=== PATIENT | female | born 1965 | race Two or more races ===

== ENCOUNTER 2016-10-19 15:39 | Inpatient (IN) | payer OTHER ==
[~2016-10-19] VITALS: Ht 154.9 cm; Wt 58.1 kg
[2016-10-19] MEDS ORDERED: ONDANSETRON 4 MG INJ IV STA ×2 (16:35→18:25)
[2016-10-19] MEDS ORDERED: SOD CHLORIDE 0.9% 1,000 ML IV STA (16:35)
[2016-10-19] MEDS ORDERED: HYDROmorphONE 1 MG/ML SYG IV STA ×2 (16:35→18:25)
[2016-10-19 17:05] LABS: BASOPHILS % 0.2 % (0.0-2.0); EOSINOPHILS # 0.1 10^3/ul (0.0-0.5); EOSINOPHILS % 0.3 % (0.0-7.0); LYMPHOCYTES # 1.5 10^3/ul (0.8-2.9); LYMPHOCYTES % 10.6 % (15.0-51.0); MEAN CORPUSCULAR HEMOGLOBIN 29.4 pg (29.0-33.0); MEAN CORPUSCULAR HGB CONC 32.4 g/dl (32.0-37.0); MEAN CORPUSCULAR VOLUME 90.7 fl (82.0-101.0); MEAN PLATELET VOLUME 10.4 fl (7.4-10.4); MONOCYTE # 0.6 10^3/ul (0.3-0.9); MONOCYTES % 4.3 % (0.0-11.0); NEUTROPHIL # 12.2 10^3/ul (1.6-7.5); NEUTROPHILS % 84.1 % (39.0-77.0); PLATELET COUNT 346 10^3/UL (140-415); RED BLOOD COUNT 4.08 10^6/ul (4.20-5.40); RED CELL DISTRIBUTION WIDTH 13.3 % (11.5-14.5); WHITE BLOOD COUNT 14.5 10^3/ul (4.8-10.8)
[2016-10-19 17:34] LABS: ALBUMIN 4.3 g/dl (3.3-4.9); ALBUMIN/GLOBULIN RATIO 1.43; BILIRUBIN,INDIRECT 0.6 mg/dl (0-1.1); BILIRUBIN,TOTAL 0.6 mg/dl (0.2-1.3); CALCIUM 9.3 mg/dl (8.4-10.2); CREATININE 0.9 mg/dl (0.44-1.00); POTASSIUM 3.2 mmol/L (3.5-5.1); TOTAL PROTEIN 7.3 g/dl (6.1-8.1)
[2016-10-19] MEDS ORDERED: IOHEXOL 300MG/ML 150 ML BTL ONE (17:53)
[2016-10-19] MEDS ORDERED: SOD CHLORIDE 0.9% 100 ML ONE (17:53)
--- NOTE | 2016-10-19 18:31 | ERD ---
ER Documentation Chief Complaint Date/Time DATE: 10/19/16 TIME: 18:30 Chief Complaint BIB RA FOR EVAL OF AP HPI This is a 51-year-old female sent by her doctor for evaluation. The patient is complaining of pain in the epigastric region onset yesterday and worse today. The pain is burning. The pain does not radiate. Patient has nausea no vomiting no diarrhea. No chest pain or shortness of breath no headache. The patient states these symptoms are new.. The patient has had her gallbladder removed ROS All systems reviewed and are negative except as per history of present illness. Allergies Allergies: Coded Allergies: No Known Allergy (Unverified , 10/19/16) PMhx/Soc Medical and Surgical Hx: pt denies Medical Hx, pt denies Surgical Hx History of Surgery: No Anesthesia Reaction: No Hx Neurological Disorder: No Hx Respiratory Disorders: No Hx Cardiac Disorders: No Hx Psychiatric Problems: No Hx Miscellaneous Medical Probl: Yes (WORMS IN STOMACH) Hx Alcohol Use: Yes Hx Substance Use: Yes Hx Tobacco Use: Yes Smoking Status: Current every day smoker FmHx Family History: No coronary disease Physical Exam Vitals Vital Signs Date Time Temp Pulse Resp B/P Pulse Ox O2 Delivery O2 Flow Rate FiO2 10/19/16 18:46 84 18 134/80 99 Room Air 10/19/16 15:43 98.3 62 19 135/74 98 Physical Exam Const: Well-developed, well-nourished Head: Atraumatic, normocephalic Eyes: Normal Conjunctiva, PERRLA, EOMI, normal sclera, no nystagmus ENT: Normal External Ears, Nose and Mouth, moist mucus membranes. Neck: Full range of motion. No meningismus, no lymphadenopathy. Resp: Clear to auscultation bilaterally, no wheezing, rhonchi, rales Cardio: Regular rate and rhythm, no murmurs, S1 S2 present Abd: Soft, n tenderness to the epigastric region and the left upper and lower abdomen non distended. Normal bowel sounds, no guarding or rebound, no pulsitile abdominal masses or bruits Skin: No petechiae or rashes, no ecchymosis , no maculopapular rash Back: No midline or flank tenderness Ext: No cyanosis, or edema, FROM x 4, normal inspection, neurovascularly intact x 4 Neur: Awake and alert, STR 5/5 x 4, sensation intact x 4, no focal findings, cerebellum intact Psych: Normal Mood and Affect Result Diagram: 10/19/16 1650 10/19/16 1650 Results 24 hrs Laboratory Tests Test 10/19/16 16:50 White Blood Count 14.510^3/ul Red Blood Count 4.0810^6/ul Hemoglobin 12.0g/dl Hematocrit 37.0% Mean Corpuscular Volume 90.7fl Mean Corpuscular Hemoglobin 29.4pg Mean Corpuscular Hemoglobin Concent 32.4g/dl Red Cell Distribution Width 13.3% Platelet Count 64214^3/UL Mean Platelet Volume 10.4fl Neutrophils % 84.1% Lymphocytes % 10.6% Monocytes % 4.3% Eosinophils % 0.3% Basophils % 0.2% Nucleated Red Blood Cells % 0.0/100WBC Neutrophils # 12.210^3/ul Lymphocytes # 1.510^3/ul Monocytes # 0.610^3/ul Eosinophils # 0.110^3/ul Basophils # 0.010^3/ul Nucleated Red Blood Cells # 0.010^3/ul Sodium Level 147mmol/L Potassium Level 3.2mmol/L Chloride Level 105mmol/L Carbon Dioxide Level 27mmol/L Anion Gap 18 Blood Urea Nitrogen 11mg/dl Creatinine 0.90mg/dl Glucose Level 107mg/dl Calcium Level 9.3mg/dl Total Bilirubin 0.6mg/dl Direct Bilirubin 0.00mg/dl Indirect Bilirubin 0.6mg/dl Aspartate Amino Transf (AST/SGOT) 391IU/L Alanine Aminotransferase (ALT/SGPT) 154IU/L Alkaline Phosphatase 160IU/L Total Protein 7.3g/dl Albumin 4.3g/dl Globulin 3.00g/dl Albumin/Globulin Ratio 1.43 Lipase 119U/L Current Medications Medications (Trade) Dose Ordered Sig/Renee Route PRN Reason Start Time Stop Time Status Last Admin Dose Admin Sodium Chloride (NS) 1,000 ml @ 1,000 mls/hr Q1H STAT IV 10/19/16 16:35 10/19/16 17:34 DC 10/19/16 16:40 Hydromorphone HCl (Dilaudid) 1 mg ONCE STAT IV 10/19/16 16:35 10/19/16 16:37 DC 10/19/16 16:41 Ondansetron HCl (Zofran Inj) 4 mg ONCE STAT IV 10/19/16 16:35 10/19/16 16:37 DC 10/19/16 16:40 IV Flush 10 ml 10 ml STK-MED ONCE .ROUTE 10/19/16 17:53 10/19/16 17:54 DC Sodium Chloride (NS) 100 ml @ ud STK-MED ONCE .ROUTE 10/19/16 17:53 10/19/16 17:54 DC Iohexol (Omnipaque 300mg/ ml) 150 ml STK-MED ONCE .ROUTE 10/19/16 17:53 10/19/16 17:54 DC Hydromorphone HCl (Dilaudid) 1 mg ONCE STAT IV 10/19/16 18:25 10/19/16 18:28 DC Ondansetron HCl (Zofran Inj) 4 mg ONCE STAT IV 10/19/16 18:25 10/19/16 18:28 DC Procedures/MDM EKG: Rate/Rhythm: Normal Sinus Rhythm,NL intervals QRS, ST, QT: NORMAL ID, QRS, QT] Impression: NORMAL EKG Departure Condition: Stable BONG BLEDSOE DO Oct 19, 2016 18:31
--- NOTE | 2016-10-19 19:06 | RADRPT ---
PROCEDURE: US Abdomen (right upper quadrant). CLINICAL INDICATION: Right upper quadrant abdomen pain. TECHNIQUE: Multiple real-time longitudinal and transverse images of the right upper quadrant of th e abdomen were acquired utilizing a curved array transducer. Images were reviewed on a high-resoluti on PACS workstation. COMPARISON: None FINDINGS: The liver is normal in size and normal in echogenicity. There is no focal hepatic lesion. Color Doppler and pulsed Doppler sonography demonstrate normal a ntegrade flow in the portal vein. The gallbladder is surgically absent. The bile ducts are normal with the common bile duct measuring 5.8 mm in diameter. The visualized portions of the pancreas are unremarkable with obscuration of the tail of the pancrea s. No free fluid is present. The right kidney measures 9.1 x 4.3 x 5.1 cm. There is normal echogenicity of the right kidney. T here is no perinephric fluid collection. No hydronephrosis, mass, or calculus is seen. IMPRESSION: 1. Status post cholecystectomy. 2. Otherwise normal right upper quadrant abdomen ultrasound. RPTAT: QQ .Wilson Flowers MD, MD Date Time Electronically viewed and signed by .Wilson Flowers MD, on 10/19/2016 19:05 .R/
--- NOTE | 2016-10-19 19:18 | RADRPT ---
PROCEDURE: CT abdomen and pelvis with contrast. CLINICAL INDICATION: Abdominal pain and nausea. TECHNIQUE: IV contrast enhanced CT examination of the abdomen and pelvis, with axial, sagittal and coronal reformatted images. 100 cc Isovue 300 nonionic IV contrast were employed. Automated dose e xposure control was employed. CTDI: 6.74 mGy and DLP: 331.00 mGy-cm. COMPARISON: None. FINDINGS: CT abdomen: The lung bases are clear. The heart size is normal, without pericardial thickening or effusion. The liver is normal in size and density without focal mass or intrahepatic biliary dilatation. Mild periportal edema is nonspecific and may represent elevated hydration status The spleen is normal in size and homogeneous in density. The stomach is partially collapsed, but is grossly unremarkable. The pancreas as visualized is normal. The gallbladder surgically absent, and biliary tree is unrem arkable and there is no evidence for biliary dilatation. The adrenal glands are symmetric and laverne l. The kidneys are symmetrically unremarkable as well. No renal calculus or obstructive uropathy or mass lesion is seen. The aorta is of normal caliber. Aortic vascular calcifications are very mild. There is no retroper itoneal lymphadenopathy. The yoandy hepatis region is clear. mild nonspecific small bowel ileus in the left abdomen. The bowel is otherwise unremarkable. 16 mm calcified mesenteric cyst at the righ t flank. CT pelvis: Mild nonspecific small bowel ileus throughout the pelvis. The pelvic organs are normal. The pelvic sidewalls and inguinal regions are clear. The sigmoid colon and rectum are all unremarkable. No m ass, lymphadenopathy, or free fluid is seen. No acute inflammation is seen. The appendix is unrema rkable. The surrounding osseous structures are remarkable for mild degenerative spondylosis of the spine. N o osteolytic or osteoblastic lesion is detected. IMPRESSION: 1. Mild periportal edema is nonspecific and may represent elevated hydration status. 2. Mild nonspecific small bowel ileus. 3. Otherwise, no acute process in the abdomen or pelvis. RPTAT: UU Physician Virgie Date Time Electronically viewed and signed by Physician Virgie on 10/19/2016 19:17 RS/
[2016-10-19] MEDS ORDERED: TRAM-40 PO (20:09)
[2016-10-19] MEDS ORDERED: ASPI325T4 PO (20:10)
[2016-10-19] MEDS ORDERED: METOCLOPRAMIDE 10 MG INJ IV ONE (20:30)
[2016-10-20 02:00] VITALS: BP 121/59; RESP 19
[2016-10-20 02:30] VITALS: TEMP 98.1
[2016-10-20 03:00] VITALS: BP 118/68; PULSE 77; RESP 16
[2016-10-20] MEDS ORDERED: BISACODYL (EC) 5 MG TAB PO PRN (03:30)
[2016-10-20] MEDS ORDERED: IBUPROFEN 600 MG TAB PO PRN (03:30)
[2016-10-20] MEDS ORDERED: NACL 0.9% 3 ML SYG IV SCH (03:30)
[2016-10-20 03:58] VITALS: Ht 154.9 cm; Wt 58.1 kg
[2016-10-20] MEDS: SOD CHLORIDE 0.9% 1,000 ML IV SCH ×2 (04:19→17:43)
[2016-10-20 05:44] LABS: HAAIG REFLEX REFLEX FILED
[2016-10-20 05:52] LABS: BASOPHILS % 0.2 % (0.0-2.0); EOSINOPHILS % 0.7 % (0.0-7.0); HEMATOCRIT 35.1 % (37.0-47.0); HEMOGLOBIN 11.3 g/dl (12.0-16.0); LYMPHOCYTES # 1.7 10^3/ul (0.8-2.9); LYMPHOCYTES % 29.9 % (15.0-51.0); MEAN CORPUSCULAR HEMOGLOBIN 28.9 pg (29.0-33.0); MEAN CORPUSCULAR HGB CONC 32.2 g/dl (32.0-37.0); MEAN CORPUSCULAR VOLUME 89.8 fl (82.0-101.0); MEAN PLATELET VOLUME 9.9 fl (7.4-10.4); MONOCYTE # 0.5 10^3/ul (0.3-0.9); MONOCYTES % 8.8 % (0.0-11.0); NEUTROPHIL # 3.4 10^3/ul (1.6-7.5); NEUTROPHILS % 60.2 % (39.0-77.0); PLATELET COUNT 315 10^3/UL (140-415); RED BLOOD COUNT 3.91 10^6/ul (4.20-5.40); RED CELL DISTRIBUTION WIDTH 13.3 % (11.5-14.5); WHITE BLOOD COUNT 5.7 10^3/ul (4.8-10.8)
[2016-10-20] MEDS ORDERED: PANTOPRAZOLE 40 MG INJ IV SCH (06:00)
--- NOTE | 2016-10-20 06:25 | HP ---
Date/Time of Note Date/Time of Note DATE: 10/20/16 TIME: 06:16 Assessment/Plan VTE Prophylaxis VTE Prophylaxis Intervention: SCD's Assessment/Plan Chief Complaint/Hosp Course This is a 51 year female being admitted to the [facility] floor for: #1 abdominal pain: Biliary tree etiology versus ileus. At the current time there are no overt signs of infection the patient does have an elevated white blood cell count. His white blood cell count could be reactive we will continue to follow. Her LFTs are significant for obstructive pattern. She has had a cholecystectomy. Gallbladder and CAT scan did not show any acute gallbladder or liver pathology. There was signs of mild ileus. Will order hepatitis panel as well as MRCP to assess biliary tree. Will provide pain control with IV narcotics. We will keep the patient n.p.o. for now and provide IV fluid hydration. GI consultation. #2 Migraine: Stable, continue to monitor. #3: Leukocytosis: Likely reactive. There are no overt signs of infection at this time. No fevers. Will order a UA at this time to assess for any possible urinary tract infection.. If any fevers develop or elevated white count persists will consider infectious process workup. #3 DVT and GI prophylaxis: SCDs, Protonix Further treatment strategy will be implemented as per the clinical course. Problems: HPI/ROS Admit Date/Time Admit Date/Time Oct 20, 2016 at 03:13 Hx of Present Illness Chief complaint: Right upper quadrant pain This is a 51-year-old female sent by her doctor for evaluation. The patient is complaining of pain in the right upper quadrant region onset yesterday and worse today. She states the pain occurred after eating. The pain is burning. The pain does not radiate. She did state that she had an episode of vomiting which is mostly clear. No chest pain or shortness of breath no headache. The patient states these symptoms are new. She does have a history of cholecystectomy. Allergies: NKDA Medications: See GARY RAMIREZ Const: As per HPI Eyes : No pain discharge or redness or change in visual acuity ENT: No pain, sore throat, congestion, congestion, dysphagia or discharge Respiratory: No shortness of breath, cough, sputum, wheezing, or pleuritic pain Cardiovascular: No chest pain, palpitation, PND, or edema GI : As per HPI Genitourinary: No dysuria, hematuria, flank pain , discharge or CVA tenderness Musculoskeletal: No joint pain, back pain, neck pain, restricted range of motion in neck or joints Skin: No rash, bruising or hives Neuro: No headache, dizziness, syncope, seizure, focal weakness Endocrine: No polyuria, polydipsia, temperature intolerance Psych: No hallucination, depression, anxiety or suicidal ideation PMH/Family/Social Past Medical History Migraine Past Surgical History Past Surgical Hx: cholecystectomy Family History Significant Family History: no pertinent family hx Social History Alcohol Use: none Smoking Status: Never smoker Drug Use: none Exam/Review of Systems Vital Signs Vitals Vital Signs Date Time Temp Pulse Resp B/P Pulse Ox O2 Delivery O2 Flow Rate FiO2 10/20/16 02:30 98.1 77 16 118/68 98 Room Air Exam Exam General: Patient is a well-developed female lying in bed no acute distress HEENT: Atraumatic, normocephalic. The pupils are equal, round and reactive. Extraocular motor are intact Neck: Supple with full range of motion. No rigidity or meningismus Chest: Nontender Lungs: Clear to auscultation bilaterally no crackles rales or wheezing Heart: Normal S1-S2, Regular rhythm and rate. No murmur, S3, or S4 Abdomen: Soft, right upper quadrant tenderness to palpation, no overt organomegaly appreciated, normal bowel sounds. Extremities: Normal to inspection, no edema no cyanosis Neurologic: Normal mental status, speech normal, cranial nerves II through XII are intact, motor and sensory are intact, no focal weakness Additional Comments PROCEDURE: US Abdomen (right upper quadrant). CLINICAL INDICATION: Right upper quadrant abdomen pain. TECHNIQUE: Multiple real-time longitudinal and transverse images of the right upper quadrant of the abdomen were acquired utilizing a curved array transducer. Images were reviewed on a high-resolution PACS workstation. COMPARISON: None FINDINGS: The liver is normal in size and normal in echogenicity. There is no focal hepatic lesion. Color Doppler and pulsed Doppler sonography demonstrate normal antegrade flow in the portal vein. The gallbladder is surgically absent. The bile ducts are normal with the common bile duct measuring 5.8 mm in diameter. The visualized portions of the pancreas are unremarkable with obscuration of the tail of the pancreas. No free fluid is present. The right kidney measures 9.1 x 4.3 x 5.1 cm. There is normal echogenicity of the right kidney. There is no perinephric fluid collection. No hydronephrosis , mass, or calculus is seen. IMPRESSION: 1. Status post cholecystectomy. 2. Otherwise normal right upper quadrant abdomen ultrasound. RPTAT: QQ .Wilson Flowers MD, MD Date Time Electronically viewed and signed by .Wilson Flowers MD, MD on 10/19/2016 19:05 .R/ CC: BONG BLEDSOE DO PROCEDURE: CT abdomen and pelvis with contrast. CLINICAL INDICATION: Abdominal pain and nausea. TECHNIQUE: IV contrast enhanced CT examination of the abdomen and pelvis, with axial, sagittal and coronal reformatted images. 100 cc Isovue 300 nonionic IV contrast were employed. Automated dose exposure control was employed. CTDI: 6.74 mGy and DLP: 331.00 mGy-cm. COMPARISON: None. FINDINGS: CT abdomen: The lung bases are clear. The heart size is normal, without pericardial thickening or effusion. The liver is normal in size and density without focal mass or intrahepatic biliary dilatation. Mild periportal edema is nonspecific and may represent elevated hydration status The spleen is normal in size and homogeneous in density. The stomach is partially collapsed, but is grossly unremarkable. The pancreas as visualized is normal. The gallbladder surgically absent, and biliary tree is unremarkable and there is no evidence for biliary dilatation. The adrenal glands are symmetric and normal. The kidneys are symmetrically unremarkable as well. No renal calculus or obstructive uropathy or mass lesion is seen. The aorta is of normal caliber. Aortic vascular calcifications are very mild. There is no retroperitoneal lymphadenopathy. The yoandy hepatis region is clear. mild nonspecific small bowel ileus in the left abdomen. The bowel is otherwise unremarkable. 16 mm calcified mesenteric cyst at the right flank. CT pelvis: Mild nonspecific small bowel ileus throughout the pelvis. The pelvic organs are normal. The pelvic sidewalls and inguinal regions are clear. The sigmoid colon and rectum are all unremarkable. No mass, lymphadenopathy, or free fluid is seen. No acute inflammation is seen. The appendix is unremarkable. The surrounding osseous structures are remarkable for mild degenerative spondylosis of the spine. No osteolytic or osteoblastic lesion is detected. IMPRESSION: 1. Mild periportal edema is nonspecific and may represent elevated hydration status. 2. Mild nonspecific small bowel ileus. 3. Otherwise, no acute process in the abdomen or pelvis. RPTAT: UU Physician Virgie Date Time Electronically viewed and signed by Gracia Juan Physician on 10/19/2016 19:17 EKG: Rate/Rhythm: Normal Sinus Rhythm,NL intervals QRS, ST, QT: NORMAL SD, QRS, QT] As per ED physician documentation Labs Result Diagram: 10/20/16 0504 10/19/16 1650 Medications Medications Current Medications Sodium Chloride (NS) 1,000 ml @ 80 mls/hr [id number] IV Last administered on 10/20 04:19; Admin Dose 80 MLS/HR; Start 10/20/16 at 03:08 Ondansetron HCl (Zofran Inj) 4 mg Q6H PRN IV NAUSEA AND/OR VOMITING; Start at 03:30 Ibuprofen (Motrin) 600 mg Q6H PRN PO PAIN LEVEL 1-3; Start 10/20/16 at 03:30 Morphine Sulfate (morphine) 2 mg Q4H PRN IV SEVERE PAIN LEVEL 7-10; Start 10/20 at 03:30 Docusate Sodium (Colace) 100 mg Q12H PRN PO CONSTIPATION; Start 10/20/16 at 03: 30 Bisacodyl (Dulcolax) 5 mg DAILY PRN PO CONSTIPATION; Start 10/20/16 at 03:30 Pantoprazole (Protonix Iv) 40 mg DAILY@06 IV Last administered on 10/20/16 05: 39; Admin Dose 40 MG; Start 10/20/16 at 06:00 CHICA FONTENOT Oct 20, 2016 06:25
[2016-10-20 07:05] LABS: CHOL/HDL RATIO 4.3 RATIO
[2016-10-20 08:40] VITALS: BP 113/56; RESP 18
[2016-10-20 08:40] LABS: ALBUMIN 3.7 g/dl (3.3-4.9); ALBUMIN/GLOBULIN RATIO 1.42; ALKALINE PHOSPHATASE 205 IU/L (42-121); ANION GAP 18 (8-16); BILIRUBIN,INDIRECT 1.1 mg/dl (0-1.1); BILIRUBIN,TOTAL 1.3 mg/dl (0.2-1.3); BLOOD UREA NITROGEN 11 mg/dl (7-20); CALCIUM 9.6 mg/dl (8.4-10.2); CARBON DIOXIDE 27 mmol/L (21-31); CHLORIDE 106 mmol/L (97-110); CREATININE 0.77 mg/dl (0.44-1.00); GLUCOSE 96 mg/dl (70-220); POTASSIUM 3.9 mmol/L (3.5-5.1); SODIUM 147 mmol/L (135-144); TOTAL PROTEIN 6.3 g/dl (6.1-8.1)
[2016-10-20 09:13] LABS: ALANINE AMINOTRANSFERASE 1124 IU/L (13-69)
--- NOTE | 2016-10-20 10:27 | PN ---
Date/Time of Note Date/Time of Note DATE: 10/20/16 TIME: 10:26 Assessment/Plan Lines/Catheters IV Catheter Type (from Nrsg): Peripheral IV Subjective 24 Hr Interval Summary Free Text/Dictation Pt reports some improvement in her abd pain Exam/Review of Systems Vital Signs Vitals Vital Signs Date Time Temp Pulse Resp B/P Pulse Ox O2 Delivery O2 Flow Rate FiO2 10/20/16 08:40 98.8 75 18 113/56 98 10/20/16 03:00 Room Air Results Result Diagram: 10/20/16 0504 10/20/16 0504 Results 24 hrs Laboratory Tests Test 10/19/16 16:50 10/20/16 05:04 White Blood Count 14.5 H 5.7 # Red Blood Count 4.08 L 3.91 L Hemoglobin 12.0 11.3 L Hematocrit 37.0 35.1 L Mean Corpuscular Volume 90.7 89.8 Mean Corpuscular Hemoglobin 29.4 28.9 L Mean Corpuscular Hemoglobin Concent 32.4 32.2 Red Cell Distribution Width 13.3 13.3 Platelet Count 346 315 Mean Platelet Volume 10.4 9.9 Neutrophils % 84.1 H 60.2 Lymphocytes % 10.6 L 29.9 Monocytes % 4.3 8.8 Eosinophils % 0.3 0.7 Basophils % 0.2 0.2 Nucleated Red Blood Cells % 0.0 0.0 Neutrophils # 12.2 H 3.4 Lymphocytes # 1.5 1.7 Monocytes # 0.6 0.5 Eosinophils # 0.1 0.0 Basophils # 0.0 0.0 Nucleated Red Blood Cells # 0.0 0.0 Sodium Level 147 H 147 H Potassium Level 3.2 L 3.9 Chloride Level 105 106 Carbon Dioxide Level 27 27 Anion Gap 18 H 18 H Blood Urea Nitrogen 11 11 Creatinine 0.90 0.77 Glucose Level 107 96 Calcium Level 9.3 9.6 Total Bilirubin 0.6 1.3 Direct Bilirubin 0.00 0.20 # Indirect Bilirubin 0.6 1.1 Aspartate Amino Transf (AST/SGOT) 391 H Alanine Aminotransferase (ALT/SGPT) 154 H 1124 H Alkaline Phosphatase 160 H 205 H Total Protein 7.3 6.3 # Albumin 4.3 3.7 Globulin 3.00 2.60 Albumin/Globulin Ratio 1.43 1.42 Lipase 119 C-Reactive Protein 0.6 Triglycerides Level 69 Cholesterol Level 233 H LDL Cholesterol, Calculated 165 HDL Cholesterol 54 Cholesterol/HDL Ratio 4.3 Free Thyroxine Index 3.59 Thyroxine (T4) 9.2 Triiodothyronine (T3) Uptake 39.0 Hepatitis A Antibody Total Pending Hepatitis B Surface Antigen Pending Hepatitis B Core Total Antibody Pending Hepatitis C Antibody Pending Medications Medications Current Medications Sodium Chloride (NS) 1,000 ml @ 80 mls/hr [id number] IV Last administered on 10/20t 04:19; Admin Dose 80 MLS/HR; Start 10/20/16 at 03:08 Ondansetron HCl (Zofran Inj) 4 mg Q6H PRN IV NAUSEA AND/OR VOMITING; Start at 03:30 Ibuprofen (Motrin) 600 mg Q6H PRN PO PAIN LEVEL 1-3; Start 10/20/16 at 03:30 Morphine Sulfate (morphine) 2 mg Q4H PRN IV SEVERE PAIN LEVEL 7-10; Start 10/20 at 03:30 Docusate Sodium (Colace) 100 mg Q12H PRN PO CONSTIPATION; Start 10/20/16 at 03: 30 Bisacodyl (Dulcolax) 5 mg DAILY PRN PO CONSTIPATION; Start 10/20/16 at 03:30 RICO MOORE MD Oct 20, 2016 10:27
--- NOTE | 2016-10-20 11:31 | RADRPT ---
PROCEDURE: MRI abdomen and MRCP without contrast. CLINICAL INDICATION: Right upper quadrant abdominal pain. TECHNIQUE: Routine MRCP was obtained without the administration of intravenous contrast. COMPARISON: 10/19/2016. FINDINGS: Gallbladder is surgically absent. No intra- or extra-hepatic biliary dilatation is identified. The re is no filling defect or choledocholithiasis. There is no biliary stricture. Liver demonstrates homogeneous signal without a focal lesion. Pancreas is normal. There is no dilatation of the pancreatic duct. The adrenal glands, kidneys, an d spleen are also within normal limits. Visualized bowel loops are normal in caliber and mural thickness. No free fluid collection. No lymphadenopathy. IMPRESSION: Surgical absence of the gallbladder without biliary obstruction, filling defect, or choledocholithia sis. RPTAT: EE .Chivo Ny MD, Date Time Electronically viewed and signed by .Chivo Ny MD, on 10/20/2016 11:36 .C/
[2016-10-20 11:35] LABS: ASPARTATE AMINO TRANSFERASE 1956 IU/L (15-46)
[2016-10-20 12:20] LABS: HEPATITIS B CORE ANTIBODY NEGATIVE (NEGATIVE)
[2016-10-20 14:00] VITALS: BP 112/63; RESP 18
--- NOTE | 2016-10-20 14:58 | PN ---
Date/Time of Note Date/Time of Note DATE: 10/20/16 TIME: 14:53 Assessment/Plan VTE Prophylaxis VTE Prophylaxis Intervention: SCD's Lines/Catheters IV Catheter Type (from Nrsg): Peripheral IV Assessment/Plan Assessment/Plan 51 yo F with no known sig pmhx presented with abd pain found to have transaminitis of unclear etiology. Pt with h/o cholecystectomy and MRCP without biliary tree compromise. Consider some sort of hepatic insult. Viral hepatitis w /u in process. Unclear the exact contents of pt's B complex vitamin. PLAN #transaminitis -check INR. albumin nl so do not suspect liver failure -await viral hepatitis serologies -if negative, consider AIH work up, check EBV/CMV -cont to monitor transaminases #anion gap: etiology unclear. glucose not markedly elevated, ethanol nl advance diet per pt request Subjective 24 Hr Interval Summary Free Text/Dictation Pt reports abd pain possibly a little better Pt denies EtOH abuse. Denies any recent APAP use. States the only new medication she's been taking is complex b12 vitamins for the past 2 weeks which her mother told her to take for ?low energy? Exam/Review of Systems Vital Signs Vitals Vital Signs Date Time Temp Pulse Resp B/P Pulse Ox O2 Delivery O2 Flow Rate FiO2 10/20/16 08:40 98.8 75 18 113/56 98 10/20/16 03:00 Room Air Exam nad, laying in bed no mrg lungs clear abd soft no rashes labs reviewed sig increase in transaminitis hep A Ab +, unclear if this represents previous/new infection APAP and EtOH neg b12 high MRCP nl Results Result Diagram: 10/20/16 0504 10/20/16 0504 Results 24 hrs Laboratory Tests Test 10/19/16 16:50 10/20/16 05:04 10/20/16 13:02 White Blood Count 14.5 H 5.7 # Red Blood Count 4.08 L 3.91 L Hemoglobin 12.0 11.3 L Hematocrit 37.0 35.1 L Mean Corpuscular Volume 90.7 89.8 Mean Corpuscular Hemoglobin 29.4 28.9 L Mean Corpuscular Hemoglobin Concent 32.4 32.2 Red Cell Distribution Width 13.3 13.3 Platelet Count 346 315 Mean Platelet Volume 10.4 9.9 Neutrophils % 84.1 H 60.2 Lymphocytes % 10.6 L 29.9 Monocytes % 4.3 8.8 Eosinophils % 0.3 0.7 Basophils % 0.2 0.2 Nucleated Red Blood Cells % 0.0 0.0 Neutrophils # 12.2 H 3.4 Lymphocytes # 1.5 1.7 Monocytes # 0.6 0.5 Eosinophils # 0.1 0.0 Basophils # 0.0 0.0 Nucleated Red Blood Cells # 0.0 0.0 Sodium Level 147 H 147 H Potassium Level 3.2 L 3.9 Chloride Level 105 106 Carbon Dioxide Level 27 27 Anion Gap 18 H 18 H Blood Urea Nitrogen 11 11 Creatinine 0.90 0.77 Glucose Level 107 96 Calcium Level 9.3 9.6 Total Bilirubin 0.6 1.3 Direct Bilirubin 0.00 0.20 # Indirect Bilirubin 0.6 1.1 Aspartate Amino Transf (AST/SGOT) 391 H 1956 H Alanine Aminotransferase (ALT/SGPT) 154 H 1124 H Alkaline Phosphatase 160 H 205 H Total Protein 7.3 6.3 # Albumin 4.3 3.7 Globulin 3.00 2.60 Albumin/Globulin Ratio 1.43 1.42 Lipase 119 C-Reactive Protein 0.6 Triglycerides Level 69 Cholesterol Level 233 H LDL Cholesterol, Calculated 165 HDL Cholesterol 54 Cholesterol/HDL Ratio 4.3 Thyroid Stimulating Hormone (TSH) 0.832 Free Thyroxine Index 3.59 Thyroxine (T4) 9.2 Triiodothyronine (T3) Uptake 39.0 Hepatitis A Antibody Total POSITIVE H Hepatitis B Surface Antigen NEGATIVE Hepatitis B Surface Antibody NEGATIVE Hepatitis B Core Total Antibody NEGATIVE Hepatitis C Antibody NEGATIVE Vitamin B12 Level > 1000 H Acetaminophen Level < 10.0 L Ethyl Alcohol Level < 10.0 Medications Medications Current Medications Sodium Chloride (NS) 1,000 ml @ 80 mls/hr [id number] IV Last administered on 10/20 04:19; Admin Dose 80 MLS/HR; Start 10/20/16 at 03:08 Ondansetron HCl (Zofran Inj) 4 mg Q6H PRN IV NAUSEA AND/OR VOMITING; Start at 03:30 Ibuprofen (Motrin) 600 mg Q6H PRN PO PAIN LEVEL 1-3 Last administered on 11:46; Admin Dose 600 MG; Start 10/20/16 at 03:30 Morphine Sulfate (morphine) 2 mg Q4H PRN IV SEVERE PAIN LEVEL 7-10; Start 10/20 at 03:30 Docusate Sodium (Colace) 100 mg Q12H PRN PO CONSTIPATION; Start 10/20/16 at 03: 30 Bisacodyl (Dulcolax) 5 mg DAILY PRN PO CONSTIPATION; Start 10/20/16 at 03:30 RICO MOORE MD Oct 20, 2016 14:58
[2016-10-20 16:29] LABS: PROTIME 13.2 Sec (12.2-14.2)
[2016-10-20] MEDS: morphine 2 MG INJ IV PRN (18:25)
[2016-10-20 20:00] VITALS: BP 108/61; RESP 18
[2016-10-20] MEDS: traMADol 50 MG TAB PO PRN (21:39)
[2016-10-21 02:00] VITALS: BP 108/62; RESP 18
[2016-10-21] MEDS: SOD CHLORIDE 0.9% 1,000 ML IV SCH (05:44)
[2016-10-21] MEDS: traMADol 50 MG TAB PO PRN (05:44)
[2016-10-21 06:10] LABS: BASOPHILS % 0.2 % (0.0-2.0); EOSINOPHILS # 0.1 10^3/ul (0.0-0.5); EOSINOPHILS % 2.1 % (0.0-7.0); HEMATOCRIT 34.2 % (37.0-47.0); HEMOGLOBIN 11.1 g/dl (12.0-16.0); LYMPHOCYTES # 1.8 10^3/ul (0.8-2.9); LYMPHOCYTES % 38.4 % (15.0-51.0); MEAN CORPUSCULAR HEMOGLOBIN 29.4 pg (29.0-33.0); MEAN CORPUSCULAR HGB CONC 32.5 g/dl (32.0-37.0); MEAN CORPUSCULAR VOLUME 90.7 fl (82.0-101.0); MONOCYTE # 0.4 10^3/ul (0.3-0.9); MONOCYTES % 7.9 % (0.0-11.0); NEUTROPHIL # 2.4 10^3/ul (1.6-7.5); NEUTROPHILS % 51.2 % (39.0-77.0); PLATELET COUNT 294 10^3/UL (140-415); RED BLOOD COUNT 3.77 10^6/ul (4.20-5.40); RED CELL DISTRIBUTION WIDTH 13.6 % (11.5-14.5); WHITE BLOOD COUNT 4.7 10^3/ul (4.8-10.8)
[2016-10-21 06:29] LABS: ALBUMIN 3.6 g/dl (3.3-4.9); ALBUMIN/GLOBULIN RATIO 1.38; BILIRUBIN,INDIRECT 0.8 mg/dl (0-1.1); BILIRUBIN,TOTAL 0.8 mg/dl (0.2-1.3); CALCIUM 8.7 mg/dl (8.4-10.2); CREATININE 0.83 mg/dl (0.44-1.00); POTASSIUM 3.3 mmol/L (3.5-5.1); TOTAL PROTEIN 6.2 g/dl (6.1-8.1)
[2016-10-21 09:12] VITALS: BP 123/64; RESP 18
[2016-10-21] MEDS: morphine 2 MG INJ IV PRN ×2 (10:45→21:09)
--- NOTE | 2016-10-21 15:20 | PN ---
Date/Time of Note Date/Time of Note DATE: 10/21/16 TIME: 15:18 Assessment/Plan VTE Prophylaxis VTE Prophylaxis Intervention: SCD's Lines/Catheters IV Catheter Type (from Nrsg): Peripheral IV Assessment/Plan Assessment/Plan 51 yo F with no known sig pmhx presented with abd pain found to have transaminitis of unclear etiology. Pt with h/o cholecystectomy and MRCP without biliary tree compromise. Consider some sort of hepatic insult. Viral hepatitis w /u in process. Unclear the exact contents of pt's B complex vitamin. PLAN #epigastric pain: GI eval for possible EGD repeated abd imaging #transaminitis: improving. Hep B core IgM and AIH labs still in process -await viral hepatitis serologies -cont to monitor transaminases #anion gap: resolved advance diet per pt request Subjective 24 Hr Interval Summary Free Text/Dictation Pt reports her abd pain is mostly in the epigastric region Exam/Review of Systems Vital Signs Vitals Vital Signs Date Time Temp Pulse Resp B/P Pulse Ox O2 Delivery O2 Flow Rate FiO2 10/21/16 09:12 98.3 71 18 123/64 98 10/20/16 03:00 Room Air Intake and Output 10/20/16 10/20/16 10/21/16 15:00 23:00 07:00 Intake Total 1840 ml 1770 ml Output Total 800 ml 2 ml Balance 1040 ml 1768 ml Exam nad mild epigastric ttp no mrg lungs clear abd soft LFTs improving, hep A igM neg Results Result Diagram: 10/21/16 0530 10/21/16 0530 Results 24 hrs Laboratory Tests Test 10/20/16 15:47 10/21/16 05:30 Prothrombin Time 13.2 Prothrombin Time Ratio 1.0 INR International Normalized Ratio 1.00 White Blood Count 4.7 L Red Blood Count 3.77 L Hemoglobin 11.1 L Hematocrit 34.2 L Mean Corpuscular Volume 90.7 Mean Corpuscular Hemoglobin 29.4 Mean Corpuscular Hemoglobin Concent 32.5 Red Cell Distribution Width 13.6 Platelet Count 294 Mean Platelet Volume 10.0 Neutrophils % 51.2 Lymphocytes % 38.4 Monocytes % 7.9 Eosinophils % 2.1 Basophils % 0.2 Nucleated Red Blood Cells % 0.0 Neutrophils # 2.4 Lymphocytes # 1.8 Monocytes # 0.4 Eosinophils # 0.1 Basophils # 0.0 Nucleated Red Blood Cells # 0.0 Sodium Level 147 H Potassium Level 3.3 L Chloride Level 111 H Carbon Dioxide Level 26 Anion Gap 13 Blood Urea Nitrogen 9 Creatinine 0.83 Glucose Level 93 Calcium Level 8.7 Total Bilirubin 0.8 Direct Bilirubin 0.00 # Indirect Bilirubin 0.8 Aspartate Amino Transf (AST/SGOT) 514 H Alanine Aminotransferase (ALT/SGPT) 650 H Alkaline Phosphatase 170 H Total Protein 6.2 Albumin 3.6 Globulin 2.60 Albumin/Globulin Ratio 1.38 Medications Medications Current Medications Ondansetron HCl (Zofran Inj) 4 mg Q6H PRN IV NAUSEA AND/OR VOMITING; Start at 03:30 Ibuprofen (Motrin) 600 mg Q6H PRN PO PAIN LEVEL 1-3 Last administered on 11:46; Admin Dose 600 MG; Start 10/20/16 at 03:30 Morphine Sulfate (morphine) 2 mg Q4H PRN IV SEVERE PAIN LEVEL 7-10 Last administered on 10/21/16 10:45; Admin Dose 2 MG; Start 10/20/16 at 03:30 Docusate Sodium (Colace) 100 mg Q12H PRN PO CONSTIPATION; Start 10/20/16 at 03: 30 Bisacodyl (Dulcolax) 5 mg DAILY PRN PO CONSTIPATION; Start 10/20/16 at 03:30 Tramadol HCl (Ultram) 50 mg Q6H PRN PO pain Last administered on 10/21/16 05: 44; Admin Dose 50 MG; Start 10/20/16 at 21:30 RICO MOORE MD Oct 21, 2016 15:20
[2016-10-21 15:34] VITALS: BP 110/70; RESP 20; RESP 90
--- NOTE | 2016-10-21 16:15 | RADRPT ---
PROCEDURE: XR Abdomen. CLINICAL INDICATION: Abdomen pain. TECHNIQUE: AP supine abdomen x-ray. COMPARISON: MRI of the abdomen dated 10/20/2016. FINDINGS: The bowel gas pattern is normal. There is no evidence of obstruction. There are no abnormal calcifications overlying the urinary tracts. Surgical clips are present in the right upper quadrant from previous cholecystectomy. There is a ro und calcification in the right upper quadrant just inferior to the lower liver measuring 2.0 x 1.6 c m which is probably a retained gallstone. There are mild degenerative changes of the spine. IMPRESSION: 1. Previous cholecystectomy. 2. Probable retained gallstone in the right upper quadrant of the abdomen inferior to the liver. 3. Mild degenerative changes of the spine. 3. Otherwise unremarkable supine abdomen radiograph. RPTAT: QQ .Wilson Flowers MD, MD Date Time Electronically viewed and signed by .Wilson Flowers MD, MD on 10/21/2016 16:15 .R/
[2016-10-21 19:08] LABS: ADD UMIC YES; UR ASCORBIC ACID NEGATIVE (NEGATIVE); UR BACTERIA FEW /HPF (NONE SEEN); UR BILIRUBIN (Dip) NEGATIVE (NEGATIVE); UR BLOOD (Dip) NEGATIVE (NEGATIVE); UR CLARITY CLEAR (CLEAR); UR COLOR STRAW (YELLOW); UR GLUCOSE (Dip) NEGATIVE (NEGATIVE); UR KETONES (Dip) NEGATIVE (NEGATIVE); UR LEUKOCYTE ESTERASE (Dip) 2+ Leu/ul (NEGATIVE); UR NITRITE (Dip) NEGATIVE (NEGATIVE); UR RBC 0 /HPF (0-5); UR SPECIFIC GRAVITY (Dip) 1.004 (1.003-1.030); UR TOTAL PROTEIN (Dip) NEGATIVE (NEGATIVE); UR UROBILINOGEN (Dip) NEGATIVE (NEGATIVE)
[2016-10-21 19:53] VITALS: BP 112/60; RESP 19
[2016-10-22 03:39] VITALS: BP 96/54; RESP 18
[2016-10-22 06:39] LABS: BASOPHILS % 0.2 % (0.0-2.0); EOSINOPHILS # 0.1 10^3/ul (0.0-0.5); EOSINOPHILS % 2.2 % (0.0-7.0); HEMATOCRIT 35.1 % (37.0-47.0); HEMOGLOBIN 11.1 g/dl (12.0-16.0); LYMPHOCYTES # 2.3 10^3/ul (0.8-2.9); LYMPHOCYTES % 40.9 % (15.0-51.0); MEAN CORPUSCULAR HEMOGLOBIN 29.1 pg (29.0-33.0); MEAN CORPUSCULAR HGB CONC 31.6 g/dl (32.0-37.0); MEAN CORPUSCULAR VOLUME 91.9 fl (82.0-101.0); MEAN PLATELET VOLUME 10.2 fl (7.4-10.4); MONOCYTE # 0.5 10^3/ul (0.3-0.9); MONOCYTES % 8.8 % (0.0-11.0); NEUTROPHIL # 2.7 10^3/ul (1.6-7.5); NEUTROPHILS % 47.7 % (39.0-77.0); PLATELET COUNT 296 10^3/UL (140-415); RED BLOOD COUNT 3.82 10^6/ul (4.20-5.40); RED CELL DISTRIBUTION WIDTH 13.5 % (11.5-14.5); WHITE BLOOD COUNT 5.6 10^3/ul (4.8-10.8)
[2016-10-22 07:05] LABS: ALBUMIN 3.9 g/dl (3.3-4.9); ALBUMIN/GLOBULIN RATIO 1.44; BILIRUBIN,INDIRECT 0.3 mg/dl (0-1.1); BILIRUBIN,TOTAL 0.3 mg/dl (0.2-1.3); CALCIUM 9.2 mg/dl (8.4-10.2); CREATININE 0.86 mg/dl (0.44-1.00); TOTAL PROTEIN 6.6 g/dl (6.1-8.1)
[2016-10-22 08:47] VITALS: BP 106/63; RESP 18
[2016-10-22 12:57] LABS: ANA SCREEN NEGATIVE (NEGATIVE)
[2016-10-22] MEDS: morphine 2 MG INJ IV PRN (14:01)
[2016-10-22] MEDS: ONDANSETRON 4 MG INJ IV PRN (14:01)
[2016-10-22] MEDS: DOCUSATE SODIUM 100 MG CAP PO PRN (14:09)
[2016-10-22 15:02] VITALS: BP 114/68; RESP 20
--- NOTE | 2016-10-22 15:40 | CONS ---
Date/Time of Note Date/Time of Note DATE: 10/22/16 TIME: 15:23 Assessment/Plan Assessment/Plan Additional Assessment/Plan Assessment * Epigastric pain R/O GERD vs peptic ulcer disease vs others * Transaminitis Plan * EGD tomorrow,risks and benefit explained to patient,agreed with the planned procedure * Adequate pain control * PPI * Trend liver enzymes * Further orders will depend on clinical course Consultation Date/Type/Reason Admit Date/Time Oct 20, 2016 at 03:13 Date of Consultation: Oct 22, 2016 Type of Consultation: gastroenterology Reason for Consultation abdominal pain/transaminitis Referring Provider: RICO MOORE MD Hx of Present Illness 51 year old female referred for evaluation of transaminitis and abdominal pain.Patient has been complaining on and off abdominal pain for the past 6 months becoming worse 4 days ago which prompted consultation at the emergency room.Patient denies any hematemesis,hematochezia but with nausea and vomiting. Course in the emergency room ,CT abdomen and pelvis revealed . Mild periportal edema is nonspecific and may represent elevated hydration status. Mild nonspecific small bowel ileus. Otherwise, no acute process in the abdomen or pelvis. WBC 14.1.hemoglobin 12,hematocrit 37,AST 1156 now 229,ALT 1124 now 469, alkaline phosphatase 157,ADDIS screen (-),smooth muscle antibody (-),Hep a,B and C negative,MRCP Surgical absence of the gallbladder without biliary obstruction , filling defect, or choledocholithiasis.. Presently ,she complains of epigastric pain with nausea and vomiting.We have explained our planned procedure EGD to patient and family and agreed with the planned procedure Eyes: no complaints ENT: no complaints Respiratory: no complaints Cardiovascular: no complaints Gastrointestinal: nausea, pain, vomiting Genitourinary: no complaints Musculoskeletal: no complaints Skin: no complaints Neurologic: no complaints Endocrine: no complaints Lymphatic: no complaints Psychological: nl mood/affect, no complaints Immunologic: no complaints Past Surgical History Past Surgical Hx: cholecystectomy Social History Alcohol Use: none Smoking Status: Never smoker Drug Use: none Exam/Review of Systems Vital Signs Vitals Vital Signs Date Time Temp Pulse Resp B/P Pulse Ox O2 Delivery O2 Flow Rate FiO2 10/22/16 15:02 98.3 77 20 114/68 96 10/20/16 03:00 Room Air Intake and Output 10/21/16 10/21/1617 15:00 23:00 07:00 Intake Total 640 ml 840 ml 500 ml Output Total 1000 ml 3 ml Balance 640 ml -160 ml 497 ml Exam Constitutional: alert, oriented, well developed Psych: no complaints Head: atraumatic, normocephalic Eyes: PERRL, nl conjunctiva, nl sclera ENMT: nl external ears & nose Neck: non-tender, supple Respiratory: clear to auscultation, normal air movement Cardiovascular: nl pulses, regular rate and rhythm Gastrointestinal: bowel sounds, nl liver, spleen, non-tender, soft, tender ( epigastric), No rebound or guarding Musculoskeletal: nl extremities to inspection, nl gait and stance Extremities: normal pulses Neurological: nl mental status, nl speech, nl strength Skin: nl turgor, No rash or lesions Lymph: nl lymph nodes Results Result Diagram: 10/22/16 0544 10/22/16 0544 Results 24 hrs Laboratory Tests Test 10/21/16 16:35 10/22/16 05:44 Urine Color STRAW Urine Clarity CLEAR Urine pH 7.0 Urine Specific [place] 1.004 Urine Ketones NEGATIVE Urine Nitrite NEGATIVE Urine Bilirubin NEGATIVE Urine Urobilinogen NEGATIVE Urine Leukocyte Esterase 2+ H Urine Microscopic RBC 0 Urine Microscopic WBC 3 Urine Bacteria FEW A Urine Hemoglobin NEGATIVE Urine Glucose NEGATIVE Urine Total Protein NEGATIVE White Blood Count 5.6 Red Blood Count 3.82 L Hemoglobin 11.1 L Hematocrit 35.1 L Mean Corpuscular Volume 91.9 Mean Corpuscular Hemoglobin 29.1 Mean Corpuscular Hemoglobin Concent 31.6 L Red Cell Distribution Width 13.5 Platelet Count 296 Mean Platelet Volume 10.2 Neutrophils % 47.7 Lymphocytes % 40.9 Monocytes % 8.8 Eosinophils % 2.2 Basophils % 0.2 Nucleated Red Blood Cells % 0.0 Neutrophils # 2.7 Lymphocytes # 2.3 Monocytes # 0.5 Eosinophils # 0.1 Basophils # 0.0 Nucleated Red Blood Cells # 0.0 Sodium Level 146 H Potassium Level 4.0 Chloride Level 107 Carbon Dioxide Level 26 Anion Gap 17 H Blood Urea Nitrogen 12 Creatinine 0.86 Glucose Level 94 Calcium Level 9.2 Total Bilirubin 0.3 Direct Bilirubin 0.00 Indirect Bilirubin 0.3 Aspartate Amino Transf (AST/SGOT) 229 H Alanine Aminotransferase (ALT/SGPT) 463 H Alkaline Phosphatase 157 H Total Protein 6.6 Albumin 3.9 Globulin 2.70 Albumin/Globulin Ratio 1.44 Medications Medications Current Medications Ondansetron HCl (Zofran Inj) 4 mg Q6H PRN IV NAUSEA AND/OR VOMITING Last administered on 10/22/16 14:01; Admin Dose 4 MG; Start 10/20/16 at 03:30 Ibuprofen (Motrin) 600 mg Q6H PRN PO PAIN LEVEL 1-3 Last administered on 11:46; Admin Dose 600 MG; Start 10/20/16 at 03:30 Morphine Sulfate (morphine) 2 mg Q4H PRN IV SEVERE PAIN LEVEL 7-10 Last administered on 10/22/16 14:01; Admin Dose 2 MG; Start 10/20/16 at 03:30 Docusate Sodium (Colace) 100 mg Q12H PRN PO CONSTIPATION Last administered on 14:09; Admin Dose 100 MG; Start 10/20/16 at 03:30 Bisacodyl (Dulcolax) 5 mg DAILY PRN PO CONSTIPATION; Start 10/20/16 at 03:30 Tramadol HCl (Ultram) 50 mg Q6H PRN PO pain Last administered on 10/21/16 05: 44; Admin Dose 50 MG; Start 10/20/16 at 21:30 MOJGAN SOL MD Oct 22, 2016 15:33
[2016-10-22] MEDS ORDERED: morphine 2 MG INJ IV ONE (16:30)
--- NOTE | 2016-10-22 17:26 | PN ---
Date/Time of Note Date/Time of Note DATE: 10/22/16 TIME: 17:25 Assessment/Plan VTE Prophylaxis VTE Prophylaxis Intervention: SCD's Lines/Catheters IV Catheter Type (from Nrs): Saline Lock Assessment/Plan Assessment/Plan 51 yo F with no known sig pmhx presented with abd pain found to have transaminitis of unclear etiology. Pt with h/o cholecystectomy and MRCP without biliary tree compromise. Consider some sort of hepatic insult. Viral hepatitis w /u negative. Unclear the exact contents of pt's B complex vitamin. PLAN #epigastric pain:EGD in AM #transaminitis: improving. AIH labs negative -cont to monitor transaminases #anion gap: resolved DVT prophx Subjective 24 Hr Interval Summary Free Text/Dictation Epigastric pain unchanged Exam/Review of Systems Vital Signs Vitals Vital Signs Date Time Temp Pulse Resp B/P Pulse Ox O2 Delivery O2 Flow Rate FiO2 10/22/16 15:02 98.3 77 20 114/68 96 10/20/16 03:00 Room Air Intake and Output 10/21/16 10/21/16 10/22/16 15:00 23:00 07:00 Intake Total 640 ml 840 ml 500 ml Output Total 1000 ml 3 ml Balance 640 ml -160 ml 497 ml Exam nad laying in bed no mrg lungs clear abd soft no rashes LFTs further improving Results Result Diagram: 10/22/16 0544 10/22/16 0544 Results 24 hrs Laboratory Tests Test 10/22/16 05:44 White Blood Count 5.6 Red Blood Count 3.82 L Hemoglobin 11.1 L Hematocrit 35.1 L Mean Corpuscular Volume 91.9 Mean Corpuscular Hemoglobin 29.1 Mean Corpuscular Hemoglobin Concent 31.6 L Red Cell Distribution Width 13.5 Platelet Count 296 Mean Platelet Volume 10.2 Neutrophils % 47.7 Lymphocytes % 40.9 Monocytes % 8.8 Eosinophils % 2.2 Basophils % 0.2 Nucleated Red Blood Cells % 0.0 Neutrophils # 2.7 Lymphocytes # 2.3 Monocytes # 0.5 Eosinophils # 0.1 Basophils # 0.0 Nucleated Red Blood Cells # 0.0 Sodium Level 146 H Potassium Level 4.0 Chloride Level 107 Carbon Dioxide Level 26 Anion Gap 17 H Blood Urea Nitrogen 12 Creatinine 0.86 Glucose Level 94 Calcium Level 9.2 Total Bilirubin 0.3 Direct Bilirubin 0.00 Indirect Bilirubin 0.3 Aspartate Amino Transf (AST/SGOT) 229 H Alanine Aminotransferase (ALT/SGPT) 463 H Alkaline Phosphatase 157 H Total Protein 6.6 Albumin 3.9 Globulin 2.70 Albumin/Globulin Ratio 1.44 Medications Medications Current Medications Ondansetron HCl (Zofran Inj) 4 mg Q6H PRN IV NAUSEA AND/OR VOMITING Last administered on 10/22/16 14:01; Admin Dose 4 MG; Start 10/20/16 at 03:30 Ibuprofen (Motrin) 600 mg Q6H PRN PO PAIN LEVEL 1-3 Last administered on 11:46; Admin Dose 600 MG; Start 10/20/16 at 03:30 Morphine Sulfate (morphine) 2 mg Q4H PRN IV SEVERE PAIN LEVEL 7-10 Last administered on 10/22/16 14:01; Admin Dose 2 MG; Start 10/20/16 at 03:30 Docusate Sodium (Colace) 100 mg Q12H PRN PO CONSTIPATION Last administered on 14:09; Admin Dose 100 MG; Start 10/20/16 at 03:30 Bisacodyl (Dulcolax) 5 mg DAILY PRN PO CONSTIPATION; Start 10/20/16 at 03:30 Tramadol HCl (Ultram) 50 mg Q6H PRN PO pain Last administered on 10/21/16 05: 44; Admin Dose 50 MG; Start 10/20/16 at 21:30 RICO MOORE MD Oct 22, 2016 17:26
[2016-10-22 19:44] VITALS: BP 115/66; RESP 16
[2016-10-23 02:15] VITALS: BP 101/55; RESP 16
[2016-10-23 05:36] LABS: BASOPHILS % 0.2 % (0.0-2.0); EOSINOPHILS # 0.1 10^3/ul (0.0-0.5); EOSINOPHILS % 2.2 % (0.0-7.0); HEMATOCRIT 35.1 % (37.0-47.0); LYMPHOCYTES # 2.5 10^3/ul (0.8-2.9); LYMPHOCYTES % 46.9 % (15.0-51.0); MEAN CORPUSCULAR HEMOGLOBIN 28.5 pg (29.0-33.0); MEAN CORPUSCULAR HGB CONC 31.3 g/dl (32.0-37.0); MEAN CORPUSCULAR VOLUME 90.9 fl (82.0-101.0); MEAN PLATELET VOLUME 10.3 fl (7.4-10.4); MONOCYTE # 0.4 10^3/ul (0.3-0.9); MONOCYTES % 8.2 % (0.0-11.0); NEUTROPHIL # 2.3 10^3/ul (1.6-7.5); NEUTROPHILS % 42.3 % (39.0-77.0); PLATELET COUNT 310 10^3/UL (140-415); RED BLOOD COUNT 3.86 10^6/ul (4.20-5.40); RED CELL DISTRIBUTION WIDTH 13.6 % (11.5-14.5); WHITE BLOOD COUNT 5.4 10^3/ul (4.8-10.8)
[2016-10-23 06:48] LABS: ALBUMIN 3.9 g/dl (3.3-4.9); ALBUMIN/GLOBULIN RATIO 1.39; BILIRUBIN,INDIRECT 0.3 mg/dl (0-1.1); BILIRUBIN,TOTAL 0.3 mg/dl (0.2-1.3); CALCIUM 9.3 mg/dl (8.4-10.2); CREATININE 0.89 mg/dl (0.44-1.00); TOTAL PROTEIN 6.7 g/dl (6.1-8.1)
[2016-10-23 07:40] VITALS: BP 92/53; RESP 18
[2016-10-23] MEDS: traMADol 50 MG TAB PO PRN (08:00)
[2016-10-23] MEDS: ONDANSETRON 4 MG INJ IV PRN (08:01)
--- NOTE | 2016-10-23 13:48 | PN ---
Date/Time of Note Date/Time of Note DATE: 10/23/16 TIME: 13:47 Assessment/Plan VTE Prophylaxis VTE Prophylaxis Intervention: SCD's Lines/Catheters IV Catheter Type (from Nrs): Saline Lock Assessment/Plan Assessment/Plan Assessment/Plan 51 yo F with no known sig pmhx presented with abd pain found to have transaminitis of unclear etiology. Pt with h/o cholecystectomy and MRCP without biliary tree compromise. Consider some sort of hepatic insult. Viral hepatitis w /u negative. Unclear the exact contents of pt's B complex vitamin. PLAN #epigastric pain:EGD today #transaminitis: improving. AIH labs negative -cont to monitor transaminases #anion gap: resolved DVT prophx Subjective 24 Hr Interval Summary Free Text/Dictation Epigastric pain still present. EGD this afternoon Exam/Review of Systems Vital Signs Vitals Vital Signs Date Time Temp Pulse Resp B/P Pulse Ox O2 Delivery O2 Flow Rate FiO2 10/23/16 07:40 98.1 67 18 92/53 92 10/20/16 03:00 Room Air Intake and Output 10/22/16 10/22/16 10/23/16 15:00 23:00 07:00 Intake Total 960 ml 500 ml Output Total 1500 ml Balance -540 ml 500 ml Exam nad no mrg lungs clear mild epigastric ttp no rashes LFTs stable Results Result Diagram: 10/23/16 0438 10/23/16 0438 Results 24 hrs Laboratory Tests Test 10/23/16 04:38 White Blood Count 5.4 Red Blood Count 3.86 L Hemoglobin 11.0 L Hematocrit 35.1 L Mean Corpuscular Volume 90.9 Mean Corpuscular Hemoglobin 28.5 L Mean Corpuscular Hemoglobin Concent 31.3 L Red Cell Distribution Width 13.6 Platelet Count 310 Mean Platelet Volume 10.3 Neutrophils % 42.3 Lymphocytes % 46.9 Monocytes % 8.2 Eosinophils % 2.2 Basophils % 0.2 Nucleated Red Blood Cells % 0.0 Neutrophils # 2.3 Lymphocytes # 2.5 Monocytes # 0.4 Eosinophils # 0.1 Basophils # 0.0 Nucleated Red Blood Cells # 0.0 Sodium Level 144 Potassium Level 4.0 Chloride Level 104 Carbon Dioxide Level 28 Anion Gap 16 Blood Urea Nitrogen 12 Creatinine 0.89 Glucose Level 93 Calcium Level 9.3 Total Bilirubin 0.3 Direct Bilirubin 0.00 Indirect Bilirubin 0.3 Aspartate Amino Transf (AST/SGOT) 291 H Alanine Aminotransferase (ALT/SGPT) 518 H Alkaline Phosphatase 212 H Total Protein 6.7 Albumin 3.9 Globulin 2.80 Albumin/Globulin Ratio 1.39 Medications Medications Current Medications Ondansetron HCl (Zofran Inj) 4 mg Q6H PRN IV NAUSEA AND/OR VOMITING Last administered on 10/23/16 08:01; Admin Dose 4 MG; Start 10/20/16 at 03:30 Ibuprofen (Motrin) 600 mg Q6H PRN PO PAIN LEVEL 1-3 Last administered on 11:46; Admin Dose 600 MG; Start 10/20/16 at 03:30 Morphine Sulfate (morphine) 2 mg Q4H PRN IV SEVERE PAIN LEVEL 7-10 Last administered on 10/22/16 14:01; Admin Dose 2 MG; Start 10/20/16 at 03:30 Docusate Sodium (Colace) 100 mg Q12H PRN PO CONSTIPATION Last administered on 14:09; Admin Dose 100 MG; Start 10/20/16 at 03:30 Bisacodyl (Dulcolax) 5 mg DAILY PRN PO CONSTIPATION Last administered on 20:21; Admin Dose 5 MG; Start 10/20/16 at 03:30 Tramadol HCl (Ultram) 50 mg Q6H PRN PO pain Last administered on 10/23/16 08: 00; Admin Dose 50 MG; Start 10/20/16 at 21:30 RICO MOORE MD Oct 23, 2016 13:48
[2016-10-23 14:15] VITALS: BP 97/64; RESP 16
[2016-10-23] MEDS ORDERED: PROPOFOL 20 ML ONE (15:40)
[2016-10-23] MEDS ORDERED: LIDOCAINE 2% (SDV) 5 ML INJ ONE (15:40)
[2016-10-23 15:43] VITALS: BP 134/70; RESP 18
[2016-10-23] MEDS ORDERED: PHENYLephrine (100 MCG/ML) 5ML SYG ONE (15:58)
[2016-10-23] MEDS ORDERED: EPHEDrine SULFATE 50 MG/5 ML SYG ONE (15:58)
[2016-10-23] MEDS ORDERED: ONDANSETRON 4 MG INJ IV PRN (16:00)
[2016-10-23] MEDS ORDERED: HYDROmorphONE (0.2 MG/ML) 10ML SYG IV PRN (16:00)
--- NOTE | 2016-10-23 16:05 | OPR ---
Date/Time of Note Date/Time of Note DATE: 10/23/16 TIME: 16:04 Operative Report Preoperative Diagnosis * Abdominal pain Postoperative Diagnosis Impression: * Multiple antral gastric ulcerations * Rule out H. pylori infection. Biopsies obtained Plan: * Protonix 40 mg twice daily * Review pathology * Advance diet * If able to tolerate diet outpatient follow-up appears safe . Operation/Procedure Performed * EGD with biopsies Surgeon: MOJGAN SOL MD Anesthesia: MAC Estimated Blood Loss: none Specimens * Gastric body/antrum Grafts/Implants * None MJOGAN SOL MD Oct 23, 2016 16:05
[2016-10-23 20:37] VITALS: BP 100/52; RESP 18
[2016-10-24] MEDS: traMADol 50 MG TAB PO PRN ×2 (02:16→09:14)
[2016-10-24 03:41] VITALS: BP 95/52; RESP 18
[2016-10-24 05:19] LABS: BASOPHILS % 0.2 % (0.0-2.0); EOSINOPHILS # 0.1 10^3/ul (0.0-0.5); EOSINOPHILS % 1.6 % (0.0-7.0); HEMATOCRIT 35.4 % (37.0-47.0); HEMOGLOBIN 11.3 g/dl (12.0-16.0); LYMPHOCYTES # 2.3 10^3/ul (0.8-2.9); LYMPHOCYTES % 45.9 % (15.0-51.0); MEAN CORPUSCULAR HEMOGLOBIN 29.2 pg (29.0-33.0); MEAN CORPUSCULAR HGB CONC 31.9 g/dl (32.0-37.0); MEAN CORPUSCULAR VOLUME 91.5 fl (82.0-101.0); MEAN PLATELET VOLUME 10.3 fl (7.4-10.4); MONOCYTE # 0.4 10^3/ul (0.3-0.9); MONOCYTES % 8.2 % (0.0-11.0); NEUTROPHIL # 2.2 10^3/ul (1.6-7.5); NEUTROPHILS % 43.9 % (39.0-77.0); PLATELET COUNT 308 10^3/UL (140-415); RED BLOOD COUNT 3.87 10^6/ul (4.20-5.40); RED CELL DISTRIBUTION WIDTH 13.4 % (11.5-14.5)
[2016-10-24] MEDS: PANTOPRAZOLE (EC) 40 MG TAB PO SCH (05:23)
[2016-10-24] MEDS: DOCUSATE SODIUM 100 MG CAP PO PRN (05:23)
[2016-10-24 05:57] LABS: ALBUMIN 3.9 g/dl (3.3-4.9); ALBUMIN/GLOBULIN RATIO 1.34; BILIRUBIN,INDIRECT 0.1 mg/dl (0-1.1); BILIRUBIN,TOTAL 0.1 mg/dl (0.2-1.3); CALCIUM 9.5 mg/dl (8.4-10.2); CREATININE 0.87 mg/dl (0.44-1.00); POTASSIUM 4.2 mmol/L (3.5-5.1); TOTAL PROTEIN 6.8 g/dl (6.1-8.1)
[2016-10-24 08:20] VITALS: BP 101/55; RESP 16
[2016-10-24] MEDS ORDERED: EXCED PO (11:23)
[2016-10-24] MEDS ORDERED: PANT40TA4 PO (11:55)
--- NOTE | 2016-10-24 12:03 | PDOCDIS ---
Discharge Instructions CONDITION Patient Condition: Stable HOME CARE INSTRUCTIONS: Diet Instructions: RegularSpecial Diet: soft diet FOLLOW UP/APPOINTMENTS Follow-up Plan Follow up with your regular doctor within 7 days to get your liver bloodwork rechecked. The family caseworker will give you information for how to obtain a new regular doctor. Follow up with Dr Rader within 4 weeks Office Address [id number] [place], [place] [id number] Office RICO MOORE MD Oct 24, 2016 12:03
--- NOTE | 2016-10-24 12:06 | DS ---
Date/Time of Note Date/Time of Note DATE: 10/24/16 TIME: 12:06 Discharge Summary Admission/Discharge Info Admit Date/Time Oct 20, 2016 at 03:13 Discharge Date/Time Discharge Diagnosis gastric ulcers, transaminitis Patient Condition: Good Consults gastroenterology Procedures 7. EGD Impression: * Multiple antral gastric ulcerations * Rule out H. pylori infection. Biopsies obtained * 7. CT AP IMPRESSION: 1. Mild periportal edema is nonspecific and may represent elevated hydration status. 2. Mild nonspecific small bowel ileus. 3. Otherwise, no acute process in the abdomen or pelvis. 7. MRCP Surgical absence of the gallbladder without biliary obstruction, filling defect , or choledocholithiasis. 7. RUQ US IMPRESSION: 1. Status post cholecystectomy. 2. Otherwise normal right upper quadrant abdomen ultrasound. Hx of Present Illness Chief complaint: Right upper quadrant pain This is a 51-year-old female sent by her doctor for evaluation. The patient is complaining of pain in the right upper quadrant region onset yesterday and worse today. She states the pain occurred after eating. The pain is burning. The pain does not radiate. She did state that she had an episode of vomiting which is mostly clear. No chest pain or shortness of breath no headache. The patient states these symptoms are new. She does have a history of cholecystectomy. Allergies: NKDA Medications: See MAY Hospital Course 51 yo F with no known sig pmhx presented with abd pain found to have transaminitis of unclear etiology. Pt with h/o cholecystectomy and MRCP without biliary tree compromise. Viral hepatitis w/u negative (only showed hx of HepA exposure v vaccination). AIH labs negative. Pt had started taking a new B vitamin prior to admission, unclear if this was the culprit. Transaminitis improved but pt with persistent epigastric pain. GI consulted for EGD which showed multiple gastric ulcers. Pt started on high dose PPI and will f/u with GI as outpatient. She should also have her LFTs rechecked within 1 week. Home Meds Active Scripts Pantoprazole* (Pantoprazole*) 40 Mg Tablet., 40 MG PO BID@06,18 for 30 Days, # 60 Prov:RICO MOORE MD 10/24/16 Reported Medications Acetaminophen/Aspirin/Caffeine* (Excedrin*) 1 Tab Tab, 2 TAB PO Q6 Y for HEADACHE, TAB 10/24/16 Aspirin* (Aspirin*) 325 Mg Tablet, 325 MG PO BID, TAB 10/19/16 Tramadol Hcl* (Ultram*) 50 Mg Tablet, 50 MG PO BID Y for PAIN, TAB 10/19/16 Follow-up Plan GI within 4 weeks for f/u stomach ulcers and path results PCP within 7 days for repeat liver profile Primary Care Provider Care Physician No Primary Time spent on discharge: > 30 minutes Pending Labs Laboratory Tests Test 10/24/16 04:36 10/24/16 09:08 White Blood Count 5.010^3/ul (4.8-10.8) Red Blood Count 3.8710^6/ul (4.20-5.40) Hemoglobin 11.3g/dl (12.0-16.0) Hematocrit 35.4% (37.0-47.0) Mean Corpuscular Volume 91.5fl (82.0-101.0) Mean Corpuscular Hemoglobin 29.2pg (29.0-33.0) Mean Corpuscular Hemoglobin Concent 31.9g/dl (32.0-37.0) Red Cell Distribution Width 13.4% (11.5-14.5) Platelet Count 89492^3/UL (140-415) Mean Platelet Volume 10.3fl (7.4-10.4) Neutrophils % 43.9% (39.0-77.0) Lymphocytes % 45.9% (15.0-51.0) Monocytes % 8.2% (0.0-11.0) Eosinophils % 1.6% (0.0-7.0) Basophils % 0.2% (0.0-2.0) Nucleated Red Blood Cells % 0.0/100WBC (0.0-0.0) Neutrophils # 2.210^3/ul (1.6-7.5) Lymphocytes # 2.310^3/ul (0.8-2.9) Monocytes # 0.410^3/ul (0.3-0.9) Eosinophils # 0.110^3/ul (0.0-0.5) Basophils # 0.010^3/ul (0.0-0.1) Nucleated Red Blood Cells # 0.010^3/ul (0.0-0.0) Sodium Level 145mmol/L (135-144) Potassium Level 4.2mmol/L (3.5-5.1) Chloride Level 106mmol/L (97-110) Carbon Dioxide Level 27mmol/L (21-31) Anion Gap 16 (8-16) Blood Urea Nitrogen 11mg/dl (7-20) Creatinine 0.87mg/dl (0.44-1.00) Glucose Level 94mg/dl (70-220) Calcium Level 9.5mg/dl (8.4-10.2) Total Bilirubin 0.1mg/dl (0.2-1.3) Direct Bilirubin 0.00mg/dl (0.00-0.20) Indirect Bilirubin 0.1mg/dl (0-1.1) Aspartate Amino Transf (AST/SGOT) 117IU/L (15-46) Alanine Aminotransferase (ALT/SGPT) 375IU/L (13-69) Alkaline Phosphatase 175IU/L (42-121) Total Protein 6.8g/dl (6.1-8.1) Albumin 3.9g/dl (3.3-4.9) Globulin 2.90g/dl (1.3-3.2) Albumin/Globulin Ratio 1.34 Lab Scanned Report REFERENCE [id number] Copies To: CC: MOJGAN SOL MD, ELLEN MD Oct 24, 2016 12:06 CC: MOJGAN SOL MD, ELLEN MD Oct 24, 2016 12:06
--- NOTE | 2016-10-24 12:09 | PN ---
Date/Time of Note Date/Time of Note DATE: 10/24/16 TIME: 12:03 Assessment/Plan VTE Prophylaxis VTE Prophylaxis Intervention: SCD's Lines/Catheters IV Catheter Type (from Nrs): Saline Lock Assessment/Plan Assessment/Plan Assessment * Epigastric pain * EGD * Multiple antral gastric ulcerations * Rule out H. pylori infection. Biopsies obtained * Transaminitis/improving/workup thus far negative * Monitor as an outpatient Plan * Patient appears safe for outpatient follow-up * She was advised to make an appointment in my office in 2 or 3 weeks * Pathology pending * To monitor liver function tests as outpatient Subjective 24 Hr Interval Summary Free Text/Dictation Course reviewed with nursing staff Patient reports feeling much better Tolerating diet without difficulty Appears safe for outpatient management Exam/Review of Systems Vital Signs Vitals Vital Signs Date Time Temp Pulse Resp B/P Pulse Ox O2 Delivery O2 Flow Rate FiO2 10/24/16 08:20 98.3 70 16 101/55 98 10/23/16 15:50 Nasal Cannula 4 Intake and Output 10/23/16 10/23/16 10/24/16 15:00 23:00 07:00 Intake Total 250 ml 450 ml Balance 250 ml 450 ml Exam Constitutional: alert, oriented, well developed Psych: nl mood/affect, no complaints Head: atraumatic, normocephalic Eyes: EOMI, PERRL, nl conjunctiva, nl lids, nl sclera ENMT: nl external ears & nose, nl lips & teeth, nl nasal mucosa & septum Neck: non-tender, supple Respiratory: clear to auscultation, normal air movement Cardiovascular: nl pulses, regular rate and rhythm Gastrointestinal: nl liver, spleen, non-tender, soft Musculoskeletal: nl extremities to inspection, nl gait and stance Extremities: normal pulses 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, nl mental status, nl speech, nl strength Skin: nl turgor, No rash or lesions Lymph: nl lymph nodes Results Result Diagram: 10/24/16 0436 10/24/16 0436 Results 24 hrs Laboratory Tests Test 10/24/16 04:36 10/24/16 09:08 White Blood Count 5.0 Red Blood Count 3.87 L Hemoglobin 11.3 L Hematocrit 35.4 L Mean Corpuscular Volume 91.5 Mean Corpuscular Hemoglobin 29.2 Mean Corpuscular Hemoglobin Concent 31.9 L Red Cell Distribution Width 13.4 Platelet Count 308 Mean Platelet Volume 10.3 Neutrophils % 43.9 Lymphocytes % 45.9 Monocytes % 8.2 Eosinophils % 1.6 Basophils % 0.2 Nucleated Red Blood Cells % 0.0 Neutrophils # 2.2 Lymphocytes # 2.3 Monocytes # 0.4 Eosinophils # 0.1 Basophils # 0.0 Nucleated Red Blood Cells # 0.0 Sodium Level 145 H Potassium Level 4.2 Chloride Level 106 Carbon Dioxide Level 27 Anion Gap 16 Blood Urea Nitrogen 11 Creatinine 0.87 Glucose Level 94 Calcium Level 9.5 Total Bilirubin 0.1 L Direct Bilirubin 0.00 Indirect Bilirubin 0.1 Aspartate Amino Transf (AST/SGOT) 117 H Alanine Aminotransferase (ALT/SGPT) 375 H Alkaline Phosphatase 175 H Total Protein 6.8 Albumin 3.9 Globulin 2.90 Albumin/Globulin Ratio 1.34 Lab Scanned Report REFERENCE LAB Medications Medications Current Medications Ondansetron HCl (Zofran Inj) 4 mg Q6H PRN IV NAUSEA AND/OR VOMITING Last administered on 10/23/16 08:01; Admin Dose 4 MG; Start 10/20/16 at 03:30 Morphine Sulfate (morphine) 2 mg Q4H PRN IV SEVERE PAIN LEVEL 7-10 Last administered on 10/22/16 14:01; Admin Dose 2 MG; Start 10/20/16 at 03:30 Docusate Sodium (Colace) 100 mg Q12H PRN PO CONSTIPATION Last administered on 05:23; Admin Dose 100 MG; Start 10/20/16 at 03:30 Bisacodyl (Dulcolax) 5 mg DAILY PRN PO CONSTIPATION Last administered on 20:21; Admin Dose 5 MG; Start 10/20/16 at 03:30 Tramadol HCl (Ultram) 50 mg Q6H PRN PO pain Last administered on 10/24/16 09: 14; Admin Dose 50 MG; Start 10/20/16 at 21:30 Pantoprazole (Protonix Tab) 40 mg BID@06,18 PO Last administered on 10/24/16 05:23; Admin Dose 40 MG; Start 10/23/16 at 18:00 MOJGAN SOL MD Oct 24, 2016 12:09
--- NOTE | 2016-10-28 06:22 | GILP ---
DATE OF PROCEDURE: 10/23/2016 PROCEDURE: Esophagogastroduodenoscopy with biopsies. HISTORY AND INDICATIONS: This patient is being evaluated for abdominal pain. PREMEDICATION: Anesthesia care by anesthesiologist. INSTRUMENT USED: Olympus endoscope. TECHNIQUE: After informed consent, with the patient/relatives understanding the procedure, its indications, potential risks and complications, including but not limited to: allergic reaction, bleeding, perforation or infection, and after all pertinent questions were answered to the patients satisfaction, the patient/relatives signed witnessed informed consent. Following this, premedication was administered slowly IV push under careful cardiovascular and respiratory monitoring with pulse oximetry, automatic blood pressure and bus driver/monitor. Once the sedative effect was achieved the patient was place in the left lateral decubitus, the panendoscope was introduced and advanced under visual control. Careful examination of the upper gastrointestinal tract, both on insertion as well as withdrawal of the instrument disclosed the following findings: ESOPHAGUS: The mucosa of the entire esophagus appears within normal limits. There is no evidence of esophagitis, varices, neoplasm or stricture. No Hiatal Hernia identified. STOMACH: Upon entrance to the stomach air was insufflated, the gastric armas distended normally. There was erythema and edema of the mucosa. Multiple antral gastric ulcerations measuring 3-6 mm were encountered. Biopsies were obtained to rule out H. pylori infection. PYLORUS: The pylorus appears patent and within normal limits, with no evidence of gastric outlet obstruction. DUODENUM: The duodenal mucosa was carefully examined in the duodenal bulb as well as the second portion of the duodenum and appears unremarkable with no evidence of duodenitis, ulcer or neoplasm. The instrument was then withdrawn, the patient tolerated the procedure well and was transfer out of the endoscopy suite awake, and in good condition to continue recovery under observation. IMPRESSION: Multiple antral gastric ulcerations, benign endoscopic appearance, no stigmata. Rule out Helicobacter pylori infection, biopsies obtained. RECOMMENDATIONS: The patient will be treated with PPIs. Pathology will be reviewed as soon as available. Further recommendations will depend on the patient's clinical course as well as review of pathology. Dictated By: Jessica Rader MD /jaylin/nancy /Document#: [id number]
== END 2016-10-24 13:40 | disposition home or self-care (01) | DRG 384 ==
LOC: E/R 15:39 → PP2 10-20 03:13
PROVIDERS: ADMIT Family Medicine; ATTEND Family Medicine
PROC: 0DB68ZX Excision of Stomach, Via Natural or Artificial Opening Endoscopic, Diagnostic (ICD-10-PCS; principal; 2016-10-23 18:00)
DX: K25.9 Gastric ulcer, unspecified as acute or chronic, without hemorrhage or perforation (principal); D72.829 Elevated white blood cell count, unspecified; G43.909 Migraine, unspecified, not intractable, without status migrainosus; Z90.49 Acquired absence of other specified parts of digestive tract; R74.9 Abnormal serum enzyme level, unspecified
CPT/HCPCS: 74000; 74177; 74181; 76705; 80053; 80061; 80306; 81001; 82607; 83036; 83690; 84436; 84443; 84479; 85025; 85610; 86038; 86140; 86255; 86704; 86706; 86708; 86709; 86803; 87340; 88305; 88312; 93005; C9113; J1170; J2270; J2370; J2405; J2765; J7030; Q9967

== ENCOUNTER 2016-10-31 04:11 | Emergency (ER) | payer SELFPAY ==
[~2016-10-31] VITALS: Ht 160 cm; Wt 57.5 kg
[~2016-10-31 04:11] MED LIST: EXCED PO; PANT40TA4 PO; TRAM-40 PO
[2016-10-31 04:20] VITALS: Ht 160 cm; Wt 57.5 kg
[2016-10-31 06:07] LABS: BASOPHILS % 0.2 % (0.0-2.0); EOSINOPHILS # 0.1 10^3/ul (0.0-0.5); EOSINOPHILS % 1.1 % (0.0-7.0); HEMATOCRIT 35.7 % (37.0-47.0); HEMOGLOBIN 11.5 g/dl (12.0-16.0); LYMPHOCYTES % 36.8 % (15.0-51.0); MEAN CORPUSCULAR HGB CONC 32.2 g/dl (32.0-37.0); MEAN CORPUSCULAR VOLUME 90.2 fl (82.0-101.0); MEAN PLATELET VOLUME 10.4 fl (7.4-10.4); MONOCYTE # 0.5 10^3/ul (0.3-0.9); MONOCYTES % 8.2 % (0.0-11.0); NEUTROPHILS % 53.5 % (39.0-77.0); PLATELET COUNT 339 10^3/UL (140-415); RED BLOOD COUNT 3.96 10^6/ul (4.20-5.40); WHITE BLOOD COUNT 5.5 10^3/ul (4.8-10.8)
[2016-10-31 06:12] VITALS: TEMP 98.6
[2016-10-31 06:33] LABS: ALBUMIN 4.1 g/dl (3.3-4.9); ALBUMIN/GLOBULIN RATIO 1.41; BILIRUBIN,INDIRECT 0.2 mg/dl (0-1.1); BILIRUBIN,TOTAL 0.2 mg/dl (0.2-1.3); CALCIUM 10.1 mg/dl (8.4-10.2); CREATININE 0.76 mg/dl (0.44-1.00)
[2016-10-31] MEDS ORDERED: ONDANSETRON 4 MG INJ IV STA ×2 (07:02→07:16)
[2016-10-31] MEDS ORDERED: morphine 4 MG/ML VIAL IV STA ×2 (07:02→07:16)
--- NOTE | 2016-10-31 07:22 | ERD ---
ER Documentation Chief Complaint Date/Time DATE: 10/31/16 TIME: 07:20 Chief Complaint epigastric painx 1 week radaiting to chest HPI Patient is a 51-year-old female who presents with sudden onset, constant, severe , burning epigastric pain for the last 4 hours. Pain radiates to the right flank. She was admitted 1 week ago for similar symptoms, and was found to have multiple gastric ulcers. She is status post cholecystectomy. She had elevated LFTs on her last admission that were unexplained. There was no sign of biliary obstruction. The patient was discharged on Protonix. She denies vomiting, dark stools, fever. She denies chest pain. ROS All systems reviewed and are negative except as per history of present illness. Medications Home Meds Active Scripts Polyethylene Glycol* (Miralax*) 17 Gm Powd.pack, 17 GM PO DAILY, #3 Prov:SYD ROCHA MD 10/31/16 Pantoprazole* (Pantoprazole*) 40 Mg Tablet.dr, 40 MG PO BID@,18 for 30 Days, # 60 Prov:RICO MOORE MD 10/24/16 Discontinued Reported Medications Acetaminophen/Aspirin/Caffeine* (Excedrin*) 1 Tab Tab, 2 TAB PO Q6 Y for HEADACHE, TAB 10/24/16 Tramadol Hcl* (Ultram*) 50 Mg Tablet, 50 MG PO BID Y for PAIN, TAB 10/19/16 Aspirin* (Aspirin*) 325 Mg Tablet, 325 MG PO BID, TAB 10/19/16 Allergies Allergies: Coded Allergies: No Known Allergy (Unverified , 10/19/16) PMhx/Soc Past medical history: Peptic ulcer disease Past surgical history: Cholecystectomy Social history: Denies tobacco, alcohol or illicit drugs. Medical and Surgical Hx: pt denies Medical Hx, pt denies Surgical Hx History of Surgery: No Anesthesia Reaction: No Hx Neurological Disorder: No Hx Respiratory Disorders: No Hx Cardiac Disorders: No Hx Psychiatric Problems: No Hx Miscellaneous Medical Probl: No Hx Alcohol Use: No Hx Substance Use: No Hx Tobacco Use: No Smoking Status: Never smoker FmHx Family History: No coronary disease, No diabetes Physical Exam Vitals Vital Signs Date Time Temp Pulse Resp B/P Pulse Ox O2 Delivery O2 Flow Rate FiO2 10/31/16 10:15 97 20 108/76 97 Room Air 10/31/16 06:12 98.6 75 20 117/78 98 Room Air 10/31/16 05:28 98.9 75 20 118/81 100 Room Air 10/31/16 04:20 97.8 77 20 120/67 98 Physical Exam Const: Alert, in severe distress writhing on bed Head: Atraumatic Eyes: Normal Conjunctiva, no pallor, no icterus ENT: Normal External Ears, Nose and Mouth. Moist mucous membranes Neck: Full range of motion..~ No meningismus. Resp: Clear to auscultation bilaterally, no wheezes, no rales. Tachypnea. Cardio: Regular rate and rhythm, no murmurs Abd: Soft, mild tenderness in epigastrium, non distended. Skin: No petechiae or rashes Back: No midline or flank tenderness Ext: No cyanosis, or edema Neur: Awake and alert, cranial nerves II through XII intact bilaterally, strength and sensation full in 4 extremities. Psych: Normal Mood and Affect Result Diagram: 10/31/1652210/31/16522 Results 24 hrs Laboratory Tests Test 10/31/16 05:23 10/31/16 07:00 White Blood Count 5.510^3/ul Red Blood Count 3.9610^6/ul Hemoglobin 11.5g/dl Hematocrit 35.7% Mean Corpuscular Volume 90.2fl Mean Corpuscular Hemoglobin 29.0pg Mean Corpuscular Hemoglobin Concent 32.2g/dl Red Cell Distribution Width 13.0% Platelet Count 84659^3/UL Mean Platelet Volume 10.4fl Neutrophils % 53.5% Lymphocytes % 36.8% Monocytes % 8.2% Eosinophils % 1.1% Basophils % 0.2% Nucleated Red Blood Cells % 0.0/100WBC Neutrophils # 3.010^3/ul Lymphocytes # 2.010^3/ul Monocytes # 0.510^3/ul Eosinophils # 0.110^3/ul Basophils # 0.010^3/ul Nucleated Red Blood Cells # 0.010^3/ul Sodium Level 147mmol/L Potassium Level 4.0mmol/L Chloride Level 105mmol/L Carbon Dioxide Level 26mmol/L Anion Gap 20 Blood Urea Nitrogen 17mg/dl Creatinine 0.76mg/dl Glucose Level 93mg/dl Calcium Level 10.1mg/dl Total Bilirubin 0.2mg/dl Direct Bilirubin 0.00mg/dl Indirect Bilirubin 0.2mg/dl Aspartate Amino Transf (AST/SGOT) 189IU/L Alanine Aminotransferase (ALT/SGPT) 155IU/L Alkaline Phosphatase 123IU/L Total Protein 7.0g/dl Albumin 4.1g/dl Globulin 2.90g/dl Albumin/Globulin Ratio 1.41 Lipase 242U/L Urine Color STRAW Urine Clarity CLEAR Urine pH 8.0 Urine Specific [place] 1.010 Urine Ketones NEGATIVEmg/dL Urine Nitrite NEGATIVEmg/dL Urine Bilirubin NEGATIVEmg/dL Urine Urobilinogen NEGATIVEmg/dL Urine Leukocyte Esterase 1+Erin/ul Urine Microscopic RBC 1/HPF Urine Microscopic WBC 5/HPF Urine Hemoglobin NEGATIVEmg/dL Urine Glucose NEGATIVEmg/dL Urine Total Protein NEGATIVEmg/dl Urine Test NEGATIVE Urine Opiates Screen Negative Urine Barbiturates Negative Urine Amphetamines Screen Negative Urine Benzodiazepines Screen Negative Urine Cocaine Screen Negative Urine Cannabinoids Negative Current Medications Medications (Trade) Dose Ordered Sig/Renee Route PRN Reason Start Time Stop Time Status Last Admin Dose Admin Morphine Sulfate (morphine) 4 mg ONCE STAT IV 10/31/16 07:02 10/31/16 07:19 DC 10/31/16 07:25 Ondansetron HCl 4 mg 4 mg ONCE STAT IV 10/31/16 07:02 10/31/16 07:19 DC 10/31/16 07:27 Sodium Chloride (NS) 1,000 ml @ 1,000 mls/hr Q1H ONCE IV 10/31/16 07:30 10/31/16 08:29 DC 10/31/16 07:29 Morphine Sulfate (morphine) 4 mg ONCE STAT IV 10/31/16 07:16 10/31/16 07:19 DC 10/31/16 09:30 Ondansetron HCl (Zofran Inj) 4 mg ONCE STAT IV 10/31/16 07:16 10/31/16 07:19 DC Pantoprazole (Protonix Iv) 40 mg ONCE ONCE IV 10/31/16 07:30 10/31/16 07:31 DC 10/31/16 07:27 Procedures/MDM EKG read by me: Time 0414, rate 74 Rhythm: Normal sinus rhythm [place]: Normal Intervals: Normal ST-T waves: no ischemic changes Ectopy: No Q-waves: No Impression: No evidence of ischemia or arrhythmia MDM: Patient is a 51-year-old female with peptic ulcer disease who presents with acute epigastric pain. She has had previous episodes of similar pain. She has had elevated LFTs of undetermined etiology. She is status post cholecystectomy in the remote past. She was treated with morphine and tonics, and her symptoms resolved. She is well-appearing and her labs are unremarkable. Her LFTs have down trended since her last visit. She has a benign repeat abdominal exam. Has no signs of bowel obstruction. Her lipase is within normal limits. She has a nonischemic EKG. 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 Departure Diagnosis: Primary Impression: Epigastric pain Additional Impression: Peptic ulcer disease Condition: SYD Kelly MD Oct 31, 2016 07:22
[2016-10-31] MEDS ORDERED: PANTOPRAZOLE 40 MG INJ IV ONE (07:30)
[2016-10-31] MEDS ORDERED: SOD CHLORIDE 0.9% 1,000 ML IV ONE (07:30)
[2016-10-31 07:56] LABS: ADD UMIC YES; UR ASCORBIC ACID NEGATIVE (NEGATIVE); UR BILIRUBIN (Dip) NEGATIVE (NEGATIVE); UR BLOOD (Dip) NEGATIVE (NEGATIVE); UR CLARITY CLEAR (CLEAR); UR COLOR STRAW (YELLOW); UR GLUCOSE (Dip) NEGATIVE (NEGATIVE); UR KETONES (Dip) NEGATIVE (NEGATIVE); UR LEUKOCYTE ESTERASE (Dip) 1+ Leu/ul (NEGATIVE); UR NITRITE (Dip) NEGATIVE (NEGATIVE); UR RBC 1 /HPF (0-5); UR TOTAL PROTEIN (Dip) NEGATIVE (NEGATIVE); UR UROBILINOGEN (Dip) NEGATIVE (NEGATIVE)
[2016-10-31 08:15] LABS: BARBITURATES Negative (NEGATIVE); BENZODIAZEPINES Negative (NEGATIVE); CANNABINOIDS Negative (NEGATIVE); COCAINE Negative (NEGATIVE); OPIATES Negative (NEGATIVE)
--- NOTE | 2016-10-31 08:28 | RADRPT ---
PROCEDURE: XR Abdomen. CLINICAL INDICATION: 51-year-old female with chest and abdominal pain. TECHNIQUE: AP abdomen x-ray. COMPARISON: None. FINDINGS: There are clips in the right upper quadrant. There is fecal material throughout the ascending trans verse and proximal half of the descending colon. There is an eggshell calcification in the area of the upper right pericolic gutter. There is calcification projecting through the left ilium. Calcif ications in the lower pelvis are likely phleboliths.. There is no evidence of obstruction. The heart is normal in size. The lungs are clear. There are degenerative osteophytes in the thoracic and artemio mbar spine with a levo scoliosis at the thoracolumbar junction.. IMPRESSION: 1. Constipation. 2. Status post cholecystectomy. 3. Levoscoliosis of the thoracolumbar spine. 4. Idiopathic benign calcifications seen inferior to the right lobe of the liver in the right peric olic gutter measuring 2 cm. A diverticulum might present this fashion. Idiopathic calcification proj ecting to the right ilium. A bone island or calcified lymph node might be considered. A CT scan of the abdomen can be performed for characterization if clinically needed. RPTAT:AAJJ Physician Maren Date Time Electronically viewed and signed by Physician Maren on 10/31/2016 08:28 EMMANUEL/
[2016-10-31] MEDS ORDERED: POLY17PO6 PO (10:00)
[2016-10-31 10:15] VITALS: BP 108/76; PULSE 97; RESP 20
== END 2016-10-31 10:48 | disposition home or self-care (01) ==
LOC: E/R 04:11
DX: R10.13 Epigastric pain (principal); K27.9 Peptic ulcer, site unspecified, unspecified as acute or chronic, without hemorrhage or perforation
CPT/HCPCS: 36415; 74010; 80053; 80307; 81001; 83690; 84703; 85025; 93005; 96374; 96375; 96376; 99285; C9113; J2270; J2405; J7030